=== PATIENT | female | born 1960 | race Caucasian/White ===

== ENCOUNTER → 2016-05-10 | Outpatient (CLI) | payer OTHER ==
--- NOTE | 2016-05-10 11:39 | DX ---
Chest, Two Views at 1022 hours on May 10, 2016 History: Chest pain post fall. Worker's Compensation. [id number]. Comparison: None. Findings: Cardiac silhouette is within normal range. Linear subsegmental atelectasis or scarring in t he left lower lobe. No pneumonia, congestive heart failure, pleural effusion, or pneumothorax. Mid to lower thoracic spine demonstrates no definite compression fractures. No definite displaced rib fract ures on the PA view. Impression: 1. Linear subsegmental atelectasis or scar in the left lower lobe. 2. No pneumothorax. 3. Consider dedicated rib series if clinically indicated.
== END ==
LOC: BMCIMAGING 10:26
PROVIDERS: ATTEND Family Medicine
DX: J98.4 Other disorders of lung (principal)

== ENCOUNTER → 2017-03-11 | Outpatient (CLI) | payer MEDICAID | LOC: FIMAGING 11:45 | PROVIDERS: ATTEND Physician Assistant Medical | DX: Z12.31 Encounter for screening mammogram for malignant neoplasm of breast (principal) | CPT/HCPCS: G0202 ==